=== PATIENT | female | born 1975 | race Caucasian/White ===

== ENCOUNTER → 2016-03-28 | Outpatient (CLI) | payer BC ==
--- NOTE | 2016-04-07 10:00 | MM ---
Reason for exam: screening (asymptomatic). Last mammogram was performed 2 years and 2 months ago. History: Patient had first child at age 29. Physical Findings: A clinical breast exam by your physician is recommended on an annual basis and results should be correlated with mammographic findings. MG Screening Mammo w CAD Bilateral CC and MLO view(s) were taken. Prior study comparison: February 05, 2014, mammogram, performed at [place]. The breast tissue is heterogeneously dense. This may lower the sensitivity of mammography. There is no discrete abnormality. ASSESSMENT: Negative, BI-RAD 1 RECOMMENDATION: Routine screening mammogram of both breasts in 1 year.
== END | disposition home or self-care (01) ==
LOC: RADMAMWWP 15:14
PROVIDERS: ATTEND Family Medicine
DX: Z12.31 Encounter for screening mammogram for malignant neoplasm of breast (principal)

== ENCOUNTER 2017-02-06 08:56 | Day surgery (SDC) | payer BC ==
[2017-02-02 09:52] VITALS: BMI 33.7
[~2017-02-06 08:56] MED LIST: ACETAMINOPHEN IV (For NPO) 1,000 MG in EMPTY BAG 1 BAG IVPB ONE; DEXAMETHASONE SOD PHOSPHATE 10 MG/ML 1 ML VIAL IV ONE; HYDROmorphone 0.5 MG/0.5 ML SYRINGE IVP PRN; LACTATED RINGERS 1,000 ML IV SCH; MIDAZOLAM 2 MG/2 ML VIAL IV PRN; ONDANSETRON 4 MG/2 ML VIAL IVP ONE; Pre Op ABX Message 1 EACH MISC MISCELLANE ONE
[2017-02-06] MEDS ORDERED: LIDOCAINE 1% INJ 10MG/ML (20 ML MDV) ONE (10:49)
[2017-02-06] MEDS ORDERED: fentaNYL (PF) 50 MCG/ML 2 ML AMP ONE (10:49)
[2017-02-06] MEDS ORDERED: ONDANSETRON 4 MG/2 ML VIAL IVP PRN (10:49)
[2017-02-06] MEDS ORDERED: MIDAZOLAM 2 MG/2 ML VIAL ONE (10:49)
[2017-02-06] MEDS ORDERED: PROPOFOL 10 MG/ML 20 ML VIAL IV ONE (10:49)
[2017-02-06] MEDS ORDERED: KETOROLAC 30 MG/ML 1 ML VIAL ONE (10:49)
[2017-02-06] MEDS ORDERED: IBUPROFEN 600 MG TAB PO PRN (10:49)
[2017-02-06] MEDS ORDERED: ACETAMINOPHEN IV (For NPO) 1,000 MG/100 ML VIAL ONE (10:49)
[2017-02-06] MEDS ORDERED: SUCCINYLCHOLINE CHLORIDE 100 MG/5 ML SYR IV ONE (10:49)
[2017-02-06] MEDS ORDERED: IBUPROFEN 800 MG TAB PO PRN (10:50)
[2017-02-06] MEDS ORDERED: LIDOCAINE 1% INJ 10MG/ML (20 ML MDV) SQ ONE ×2 (11:18→11:22)
--- NOTE | 2017-02-06 11:47 | P.OP ---
Date of Procedure: 02/06/17 Preoperative Diagnosis: right ovarian cyst, hemorrhagic, menorrhagia Postoperative Diagnosis: same Procedure(s) Performed: Diagnostic laparoscopy, dilation and curettage, hysteroscopy, endometrial ablation with NovaSure Anesthesia: HILLARY Surgeon: Alejandra Soares Estimated Blood Loss (ml): 10 IV fluids (ml): 500 Urine output (ml): 100 Pathology: other (endometrial currettings) Condition: stable Disposition: PACU Indications for Procedure: Right ovarian hemorrhagic cyst, menorrhagia Operative Findings: Normal appearing ovaries bilaterally normal upper abdomen anatomy. Normal endometrial cavity with proliferative endometrium Description of Procedure: After informed consent was obtained in the preoperative area and risks were discussed including but not limited to infection bleeding damage to bowel bladder, ureter and perforation patient signed consent and was taken to the operating suite. General anesthesia was obtained by anesthesia department. Red rubber catheter was used to drain the bladder of clear yellow urine using sterile technique, weighted speculumthe posterior vaginal vault anterior lip of the cervix was grasped with single tooth tenaculum. An acorn uterine manipulator was advanced into the cervix as a means to manipulate the uterus throughout the procedure. She was then turned to the patient's umbilicus where a small incision was made through this incision a residual was placed. Once that is new Mesha may be appropriate position of the drop in CO2 pressure with insufflation of CO2 gas CO2 insufflation was allowed to occur. Approximately 3 L of gas were used to obtain pneumoperitoneum. At this time the additional port sites were placed in the right lower quadrant 2 fingerbreadths from the ASIS. Under direct visualization a 5 mm trocar and sleeve was placed through this same incision. upon Inspection of the patient's pelvis the above-noted findings were visualized. Multiple pictures were taken the ovaries were visualized directly and no abnormalities were appreciated. All instrument removed from the patient's pelvis and the skin incisions were closed with 4-0 Vicryl in a subcuticular fashion. sterile Dressings were applied as needed. Attention was then turned to the vaginal vault. The acorn uterine manipulator was removed without difficulty and the cervix was then dilated up to 18-[place]. An endometrial curettage was performed until a gritty texture was noted in all 4 quadrants of the uterine cavity. At this time the NovaSure device was then opened and set to the appropriate measurements of the uterine cavity 5 cm length 4.3 cm length power of 118 for a total cycle length of 74 seconds. Cycle is only allowed to be completed once the the cavity was deemed to be intact with by the initial cavity assessment by the NovaSure device. Once the cycle was completed the device was removed without difficulty. The dissection was taken off of the anterior lip of the cervix hemostase appreciated. All instruments removed the patient's vaginal vault. All counts were correct 2 patient tolerated procedure well and was taken to the recovery room awake and in stable condition.
[2017-02-06 11:58] VITALS: TEMP 96.9
[2017-02-06 12:20] VITALS: RESP 16
[2017-02-06 12:56] VITALS: PULSE 68
[2017-02-06 13:07] VITALS: BP 121/79
[2017-02-07] MEDS ORDERED: LEVOTHYROXINE 112 MCG TAB PO SCH (06:30)
== END 2017-02-06 13:25 | disposition home or self-care (01) ==
LOC: OR 08:56
PROVIDERS: ATTEND Obstetrics & Gynecology Obstetrics
DX: N92.0 Excessive and frequent menstruation with regular cycle (principal); N83.201 Unspecified ovarian cyst, right side; E07.9 Disorder of thyroid, unspecified; Z79.890 Hormone replacement therapy; Z79.1 Long term (current) use of non-steroidal anti-inflammatories (NSAID); Z87.891 Personal history of nicotine dependence; Z83.3 Family history of diabetes mellitus; Z80.1 Family history of malignant neoplasm of trachea, bronchus and lung
CPT/HCPCS: 58563; 49320; 81025; 88305; J2250; J1100; J2405; J2001; J3010; J1885; J0131; J0330; J2704

== ENCOUNTER → 2017-04-19 | Outpatient (CLI) | payer BC ==
--- NOTE | 2017-04-23 07:59 | MM ---
Reason for exam: screening (asymptomatic). Last mammogram was performed 1 year and 1 month ago. History: Patient had first child at age 29. Physical Findings: A clinical breast exam by your physician is recommended on an annual basis and results should be correlated with mammographic findings. MG 3D Screening Mammo W/Cad Bilateral CC and MLO view(s) were taken. Prior study comparison: March 28, 2016, bilateral MG screening mammo w CAD. February 05, 2014, mammogram, performed at [place]. The breast tissue is heterogeneously dense. This may lower the sensitivity of mammography. No significant changes when compared with prior studies. ASSESSMENT: Benign, BI-RAD 2 RECOMMENDATION: Routine screening mammogram of both breasts in 1 year.
== END | disposition home or self-care (01) ==
LOC: RADMAMWWP 16:02
PROVIDERS: ATTEND Family Medicine
DX: Z12.31 Encounter for screening mammogram for malignant neoplasm of breast (principal)
CPT/HCPCS: 77063; 77067

== ENCOUNTER → 2017-04-30 | Outpatient (CLI) | payer BC ==
--- NOTE | 2017-04-30 11:56 | NM ---
EXAMINATION TYPE: NM stress cardiolite complete DATE OF EXAM: 04/30/2017 COMPARISON: NONE HISTORY: Chest pain, palpitations, and skin paresthesias. TECHNIQUE: After the intravenous administration of 10.5 mCi Tc 99m Sestamibi - Rest images obtained 45 minutes post injection. The patient exercised using a ZEFERINO protocol and 1 minute prior to peak exercise was injected with 26.7 mCi Tc 99m Sestamibi - Stress images obtained 45 minutes post injecti on. FINDINGS: Targeted heart rate was achieved during performance of the study. Review of stress and rest SPECT betty ges demonstrates no reversible perfusion abnormality. No fixed abnormality is seen. Artifact is note d on the rest images in the septal wall. Gated analysis shows normal wall motion with an estimated le ft ventricular ejection fraction of 61 %. TID is within normal limits calculated at 1.07. IMPRESSION: 1. No scintigraphic evidence for reversible ischemia. 2. Estimated left ventricular ejection fraction of 61%.
--- NOTE | 2017-04-30 12:06 | P.STRESS ---
- Stress Test Note Stress Test Results/Findings: Exam Performed: NM stress cardiolite complete Exam Date: 04/30/17 Reason for Exam: Chest Pain Height: 5 ft 10 in Weight: 105.233 kg Protocol: Adán Cardiolite Stage: 3 Duration of Exercise: 9:00 Resting Heart Rate: 68 Resting Blood Pressure: 118/88 Maximum Achieved Heart Rate: 157 Maximum Achieved Blood Pressure: 210/87 85% PMHR: 150 100% PMHR: 177 METS: 10.5 Technologist Comment: Stress Test Results/Findings: This is a 41-year-old female with history of chest pain, shortness of breath and palpitations being evaluated for cardiac status. Baseline EKG showed sinus rhythm with normal ND interval, QRS duration. Blood pressure at rest is 118/88 , pulse rate of 68. Patient walked on the Adán protocol for 9 minutes achieving a maximal heart rate of 157 with a blood pressure 210/87. EKGs taken during and after exercise did not reveal any significant changes from baseline. Final impression: #1. Negative stress test #2 patient did not express any chest pain #3. No arrhythmias were detected #4. Report on the nuclear images to be given by the radiologist
--- NOTE | 2017-05-01 11:36 | EST ---
- Stress Test Note Stress Test Results/Findings: Exam Performed: NM stress cardiolite complete Exam Date: 04/30/17 Reason for Exam: Chest Pain Height: 5 ft 10 in Weight: 105.233 kg Protocol: Adán Cardiolite Stage: 3 Duration of Exercise: 9:00 Resting Heart Rate: 68 Resting Blood Pressure: 118/88 Maximum Achieved Heart Rate: 157 Maximum Achieved Blood Pressure: 210/87 85% PMHR: 150 100% PMHR: 177 METS: 10.5 Technologist Comment: Stress Test Results/Findings: This is a 41-year-old female with history of chest pain, shortness of breath and palpitations being evaluated for cardiac status. Baseline EKG showed sinus rhythm with normal WI interval, QRS duration. Blood pressure at rest is 118/88 , pulse rate of 68. Patient walked on the Adán protocol for 9 minutes achieving a maximal heart rate of 157 with a blood pressure 210/87. EKGs taken during and after exercise did not reveal any significant changes from baseline. Final impression: #1. Negative stress test #2 patient did not express any chest pain #3. No arrhythmias were detected #4. Report on the nuclear images to be given by the radiologist MICHAEL
== END | disposition home or self-care (01) ==
LOC: RADNMMAIN 08:27
PROVIDERS: ATTEND Family Medicine
DX: R20.2 Paresthesia of skin (principal)
CPT/HCPCS: 93017; 78452; A9500

== ENCOUNTER → 2017-07-18 | Outpatient (CLI) | payer BC | END | disposition home or self-care (01) | LOC: RADECHMAIN 11:42 | PROVIDERS: ATTEND Family Medicine | DX: R00.2 Palpitations (principal) | CPT/HCPCS: 93225; 93226 ==

== ENCOUNTER 2018-02-07 08:34 | Day surgery (SDC) | payer BC ==
[2018-02-05 10:18] VITALS: BMI 34.3
[2018-02-07 08:57] VITALS: TEMP 98.2
[2018-02-07] MEDS: LACTATED RINGERS 1,000 ML IV SCH ×2 (08:58→09:00)
[2018-02-07] MEDS ORDERED: LIDOCAINE 1% INJ 10MG/ML (20 ML MDV) ONE (09:03)
[2018-02-07] MEDS ORDERED: PROPOFOL 10 MG/ML 20 ML VIAL IV ONE (09:03)
[2018-02-07 09:40] VITALS: RESP 18
--- NOTE | 2018-02-07 09:52 | P.PCN ---
Date of Procedure: 02/07/18 Description of Procedure: BRIEF HISTORY: Patient is a 42-year-old pleasant female patient with a medical history significant for hypothyroidism with scheduled for an elective colonoscopy as a part of high risk screening given a family history of colon cancer and polyps. The patient denies any symptoms of metaplasia, melena, change in bowel habits, diarrhea or constipation. She does report a significant history of colon cancer and high risk polyps. PROCEDURE PERFORMED: Colonoscopy with polypectomy. PREOPERATIVE DIAGNOSIS: High risk colon cancer screening, family history of colon cancer, family history of colon polyps. ESTIMATED BLOOD LOSS: Minimal. IV sedation per Anesthesia. PROCEDURE: After informed consent was obtained, the patient, was brought into the endoscopy unit. IV sedation was administered by Anesthesia under continuous monitoring. Digital rectal examination was normal. Initially the Olympus CF- 190 flexible video colonoscope was then inserted in the rectum, gradually advanced into the cecum without any difficulty. Careful examination was performed as the scope was gradually being withdrawn. Terminal ileum was intubated and appeared normal. Ileocecal valve and the appendiceal orifice were visualized and appeared normal. Prep was excellent. Mucosa of the cecum, ascending colon, transverse colon, descending colon, sigmoid colon, and rectum appeared normal. A 4 mm polyp was removed with cold forcep polypectomy in the sigmoid colon. Retroflexion was performed in the rectum and no lesions were seen, mild internal hemorrhoids were noted. The patient tolerated the procedure well. IMPRESSION: Normal-appearing colon from rectum to cecum. Sigmoid colon polypectomy. Mild internal hemorrhoids. RECOMMENDATIONS: Findings of this examination were discussed with the patient and her mother. Okay to resume diet. Await pathology from polypectomy. Patient will likely need surveillance colonoscopy in 5 years pending pathology from polypectomy or sooner if signs or symptoms which warrant investigation develop.
[2018-02-07 10:22] VITALS: BP 134/72; PULSE 94
== END 2018-02-07 10:23 | disposition home or self-care (01) ==
LOC: ORWHC2ENDO 08:34
PROVIDERS: ATTEND Internal Medicine
DX: Z12.11 Encounter for screening for malignant neoplasm of colon (principal); D12.5 Benign neoplasm of sigmoid colon; K64.8 Other hemorrhoids; Z80.0 Family history of malignant neoplasm of digestive organs; Z83.71 Family history of colonic polyps; Z72.0 Tobacco use; E07.9 Disorder of thyroid, unspecified; Z79.890 Hormone replacement therapy; Z79.1 Long term (current) use of non-steroidal anti-inflammatories (NSAID)
CPT/HCPCS: 81025; 88305; 45380; J2001; J2704

== ENCOUNTER → 2018-03-26 | Outpatient (CLI) | payer BC | LOC: LABWHC1 14:44 | PROVIDERS: ATTEND Internal Medicine Endocrinology, Diabetes & Metabolism | DX: E03.8 Other specified hypothyroidism (principal) | CPT/HCPCS: 36415; 84443 ==

== ENCOUNTER → 2018-07-01 | Outpatient (CLI) | payer BC ==
--- NOTE | 2018-07-02 14:46 | MM ---
Reason for exam: screening (asymptomatic). Last mammogram was performed 1 year and 2 months ago. History: Patient had first child at age 29. Physical Findings: A clinical breast exam by your physician is recommended on an annual basis and results should be correlated with mammographic findings. MG 3D Screening Mammo W/Cad Bilateral CC and MLO view(s) were taken. Prior study comparison: April 19, 2017, bilateral MG 3d screening mammo w/cad. March 28, 2016, bilateral MG screening mammo w CAD. The breast tissue is heterogeneously dense. This may lower the sensitivity of mammography. No suspicious abnormality in the right breast. Lateral distortion at middle depth on the left CC view with possible superior correlate. ASSESSMENT: Incomplete: need additional imaging evaluation, BI-RAD 0 RECOMMENDATION: Special view mammogram of the left breast. If lesion persists on supplemental views, image directed ultrasound is recommended. [facility] will attempt to contact patient to return for supplemental views and ultrasound if indicated.
== END | disposition home or self-care (01) ==
LOC: RADMAMWWP 08:05
PROVIDERS: ATTEND Obstetrics & Gynecology Obstetrics
DX: Z12.31 Encounter for screening mammogram for malignant neoplasm of breast (principal)
CPT/HCPCS: 77063; 77067

== ENCOUNTER → 2018-07-05 | Outpatient (CLI) | payer BC ==
--- NOTE | 2018-07-09 08:08 | MM ---
Reason for exam: additional evaluation requested from abnormal screening. Last mammogram was performed less than 1 month ago. History: Patient had first child at age 29. Physical Findings: Nurse did not find any significant physical abnormalities on exam. MG 3D Work Up W/Cad LT Spot compression CC, spot compression MLO, and LM view(s) were taken of the left breast. Prior study comparison: July 01, 2018, bilateral MG 3d screening mammo w/cad. April 19, 2017, bilateral MG 3d screening mammo w/cad. There are scattered fibroglandular densities. There is no discrete abnormality. These results were verbally communicated with the patient and result sheet given to the patient on 07/05/18. ASSESSMENT: Benign, BI-RAD 2 RECOMMENDATION: Return to routine screening mammogram schedule for both breasts.
== END | disposition home or self-care (01) ==
LOC: RADMAMWWP 14:48
PROVIDERS: ATTEND Obstetrics & Gynecology Obstetrics
DX: Z12.31 Encounter for screening mammogram for malignant neoplasm of breast (principal)
CPT/HCPCS: 77061; 77065

== ENCOUNTER → 2018-07-06 | Outpatient (CLI) | payer BC ==
[2018-07-06 10:41] LABS: HCT 41.4 % (34.0-46.0); HGB 13.7 gm/dL (11.4-16.0); MCH 30.7 pg (25.0-35.0); MCV 93.1 fL (80.0-100.0); Mean Platelet Volume 8.5; Platelet Count 253 k/uL (150-450); RBC 4.44 m/uL (3.80-5.40); RDW 13.8 % (11.5-15.5); WBC 5.1 k/uL (3.8-10.6)
[2018-07-06 10:51] LABS: Appearance,Urine Cloudy (Clear); Bacteria,Urine Few /hpf; Bilirubin,Urine Negative (Negative); Blood,Urine Negative (Negative); Color,Urine Yellow; Glucose,Urine (UA) Negative (Negative); Ketones,Urine 2+ (Negative); Leukocyte Esterase,Urine Moderate (Negative); Mucus,Urine Rare /hpf; Nitrite,Urine Negative (Negative); PH, Urine 5.5 (5.0-8.0); Protein,Urine Negative (Negative); RBC,Urine 1 /hpf (0-5); Specific Gravity,Urine 1.012 (1.001-1.035); Squamous Epithelial Cell,Urine 3 /hpf (0-4); Urobilinogen,Urine <2.0 mg/dL (<2.0); WBC,Urine 6 /hpf (0-5)
[2018-07-06 17:39] LABS: Albumin 4.1 g/dL (3.80-4.90); Albumin/Globulin Ratio 2.05 (1.60-3.17); Calcium 9.2 mg/dL (8.7-10.3); LDL Cholesterol,Calculated 81.8 mg/dL (0.0-131.0); Potassium 4.2 mmol/L (3.5-5.5); Total Bilirubin 0.6 mg/dL (0.3-1.2); Total Protein 6.1 g/dL (6.2-8.2); VLDL Calculation 18.2 mg/dL (5.00-40.00)
[2018-07-06 17:42] LABS: Iron Saturation 33.04 (12.00-45.00); Parathyroid Hormone Intact 54.4 pg/mL (14.0-72.0)
[2018-07-06 17:52] LABS: Vitamin D 25 Hydroxy 38.7 ng/mL (30.0-100.0)
[2018-07-06 20:27] LABS: Hemoglobin A1C 5.3 % (4.0-6.0)
== END | disposition home or self-care (01) ==
LOC: LABWHC1 09:12
PROVIDERS: ATTEND Family Medicine
DX: Z00.00 Encounter for general adult medical examination without abnormal findings (principal); Z98.84 Bariatric surgery status
CPT/HCPCS: 36415; 80053; 80061; 81001; 82306; 82607; 82728; 82746; 83036; 83540; 83550; 83970; 84425; 85027

== ENCOUNTER → 2018-10-22 | Outpatient (CLI) | payer BC | END | disposition home or self-care (01) | LOC: LABWHC1 10:50 | PROVIDERS: ATTEND Internal Medicine Endocrinology, Diabetes & Metabolism | DX: E03.8 Other specified hypothyroidism (principal) | CPT/HCPCS: 36415; 84443 ==

== ENCOUNTER → 2018-10-25 | Outpatient (CLI) | payer BC ==
--- NOTE | 2018-10-26 11:49 | US ---
EXAMINATION TYPE: US thyroid st tissue head/neck DATE OF EXAM: 10/25/2018 COMPARISON: NONE CLINICAL HISTORY: E03.8 Other specified hypothyroidism. Hypothyroidism, patient on medication for 14 years GLAND SIZE: Right Lobe: 3.3 x 0.9 x 1.1 cm Overall Parenchyma: heterogenous Left Lobe: 2.7 x 0.7 x 0.9 cm Overall Parenchyma: heterogeneous Isthmus Thickness: 0.2 cm NODULES RIGHT: # of nodules measured on right: 0 LEFT: # of nodules measured on left: 0 ISTHMUS: # of nodules measured in the isthmus: 0 Bilateral neck scanned, lymph node left neck = 1.2cm IMPRESSION: 1. No suspicious thyroid masses. The heart appears somewhat atrophic. 2. Left neck lymph node.
== END | disposition home or self-care (01) ==
LOC: RADUSMAIN 17:50
PROVIDERS: ATTEND Internal Medicine Endocrinology, Diabetes & Metabolism
DX: R22.1 Localized swelling, mass and lump, neck (principal)
CPT/HCPCS: 76536

== ENCOUNTER → 2019-02-13 | Outpatient (CLI) | payer BC ==
--- NOTE | 2019-02-13 13:41 | US ---
EXAMINATION TYPE: US venous doppler duplex LE LT DATE OF EXAM: 02/13/2019 1:11 PM COMPARISON: NONE CLINICAL HISTORY: M79.669 pain in left lower leg. Tenderness left calf for 1 week SIDE PERFORMED: left TECHNIQUE: The lower extremity deep venous system is examined utilizing real time linear array sonog lilia with graded compression, doppler sonography and color-flow sonography. VESSELS IMAGED: External Iliac Vein (EIV) Common Femoral Vein Deep Femoral Vein Greater Saphenous Vein * Femoral Vein Popliteal Vein Small Saphenous Vein * Proximal Calf Veins (* superficial vessels) Grayscale, color Doppler, spectral Doppler imaging performed of the deep veins of the left lower extr emity. Left Leg: No evidence of DVT There is normal flow, compressibility, vascular waveforms. IMPRESSION: No evident deep venous arthrosis at or above the left knee. Follow-up as indicated.
== END | disposition home or self-care (01) ==
LOC: RADUSWWP 12:50
PROVIDERS: ATTEND Physician Assistant
DX: M79.662 Pain in left lower leg (principal)

== ENCOUNTER 2019-02-25 08:14 | Emergency (ER) | payer OTHER, BC ==
[2019-02-25 08:27] VITALS: BP 115/74; PULSE 63; RESP 18; TEMP 97.5
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
== END 2019-02-25 09:33 | disposition home or self-care (01) ==
LOC: EC 08:14
DX: R51 Headache (principal); E07.9 Disorder of thyroid, unspecified; Z79.890 Hormone replacement therapy; Z87.891 Personal history of nicotine dependence; V89.2XXA Person injured in unspecified motor-vehicle accident, traffic, initial encounter; Y92.410 Unspecified street and highway as the place of occurrence of the external cause
CPT/HCPCS: 70450; 99284

== ENCOUNTER → 2019-03-20 | Outpatient (CLI) | payer BC ==
[2019-03-20 09:43] LABS: Basophils % (A) 0 %; Eosinophils # (A) 0.1 k/uL (0-0.7); Eosinophils % (A) 1 %; HCT 43.2 % (34.0-46.0); HGB 13.6 gm/dL (11.4-16.0); Lymphocytes # (A) 1.2 k/uL (1.0-4.8); Lymphocytes % (A) 26 %; MCH 30.5 pg (25.0-35.0); MCHC 31.4 g/dL (31.0-37.0); Mean Platelet Volume 7.6; Monocytes # (A) 0.2 k/uL (0-1.0); Monocytes % (A) 4 %; Neutrophils # (A) 3.3 k/uL (1.3-7.7); Neutrophils % (A) 68 %; Platelet Count 328 k/uL (150-450); RBC 4.45 m/uL (3.80-5.40); RDW 12.4 % (11.5-15.5); WBC 4.8 k/uL (3.8-10.6)
[2019-03-20 16:57] LABS: % Iron Saturation 26.59 (12.00-45.00); Chol/HDL Ratio 2.51; Cholesterol 186 mg/dL (0-200); Iron 67 ug/dL (50-170); Total Iron Binding Capacity 252 ug/dL (228-460); Triglycerides <50.0 mg/dL (0.0-149.0)
[2019-03-20 17:05] LABS: Ferritin 151.1 ng/mL (10.0-291.0)
[2019-03-20 18:28] LABS: Hemoglobin A1C 5.2 % (4.0-6.0)
== END | disposition home or self-care (01) ==
LOC: LABWHC1 08:28
PROVIDERS: ATTEND Family Medicine
DX: Z01.812 Encounter for preprocedural laboratory examination (principal); Z98.84 Bariatric surgery status
CPT/HCPCS: 36415; 80061; 82306; 82607; 82728; 83036; 83540; 83550; 83970; 85025

== ENCOUNTER → 2019-03-20 | Outpatient (CLI) | payer BC ==
[2019-03-20 09:47] LABS: Appearance,Urine Clear (Clear); Bacteria,Urine Rare /hpf; Bilirubin,Urine Negative (Negative); Blood,Urine Negative (Negative); Color,Urine Light Yellow; Glucose,Urine (UA) Negative (Negative); Ketones,Urine Negative (Negative); Leukocyte Esterase,Urine Trace (Negative); Nitrite,Urine Negative (Negative); PH, Urine 7.5 (5.0-8.0); Protein,Urine Negative (Negative); RBC,Urine <1 /hpf (0-5); Specific Gravity,Urine 1.004 (1.001-1.035); Squamous Epithelial Cell,Urine <1 /hpf (0-4); Urobilinogen,Urine <2.0 mg/dL (<2.0); WBC,Urine 1 /hpf (0-5)
[2019-03-20 09:52] LABS: INR 0.9 (<1.2); Partial Thromboplastin Time 22.8 sec (22.0-30.0); Prothrombin Time 9.9 sec (9.0-12.0)
[2019-03-20 09:58] LABS: ALT 22 U/L (4-34); AST 29 U/L (14-36); African American GFR (CKD) >90 (>60 ml/min/1.73 sqM); Albumin 4.2 g/dL (3.5-5.0); Alkaline Phosphatase 61 U/L (38-126); Anion Gap 7 mmol/L; Blood Urea Nitrogen 15 mg/dL (7-17); Calcium 9.1 mg/dL (8.4-10.2); Carbon Dioxide 30 mmol/L (22-30); Chloride 103 mmol/L (98-107); Glucose 86 mg/dL (74-99); Non-African American GFR(CKD) >90 (>60 ml/min/1.73 sqM); Potassium 4.4 mmol/L (3.5-5.1); Sodium 140 mmol/L (137-145); Total Bilirubin 0.7 mg/dL (0.2-1.3)
== END | disposition home or self-care (01) ==
LOC: LABPAT 08:25
PROVIDERS: ATTEND Orthopaedic Surgery
DX: Z01.818 Encounter for other preprocedural examination (principal); Z01.812 Encounter for preprocedural laboratory examination; M16.12 Unilateral primary osteoarthritis, left hip
CPT/HCPCS: 80053; 81001; 85610; 85730; 87070

== ENCOUNTER 2019-03-31 05:30 | Day surgery (SDC) | payer BC ==
[2019-03-26 10:44] VITALS: BMI 22.6
[~2019-03-31 05:30] MED LIST changes: -ACETAMINOPHEN IV (For NPO) 1,000 MG in EMPTY BAG 1 BAG IVPB ONE; +ACETAMINOPHEN TAB 500 MG TAB PO ONE; +GABAPENTIN 300 MG CAP PO ONE; -LACTATED RINGERS 1,000 ML IV SCH; +MELOXICAM 7.5 MG TAB PO ONE; -Pre Op ABX Message 1 EACH MISC MISCELLANE ONE; +SCOPOLAMINE 1.5MG/72HR PATCH TRANSDERM ONE; +TRANEXAMIC ACID 1,000 MG in SODIUM CHLORIDE 0.9% 100 ML IVPB ONE; +VANCOMYCIN 1,000 MG in SODIUM CHLORIDE 0.9% 250 ML IVPB ONE
[2019-03-31] MEDS ORDERED: ROPIVACAINE 246.25 MG, EPINEPHrine 0.5 MG, KETOROLAC 30 MG, cloNIDine HCL/PF 80 MCG, WA... MISCELLANE ONE ×5 (06:00)
[2019-03-31] MEDS: LACTATED RINGERS 1,000 ML IV SCH ×2 (06:22→22:48)
[2019-03-31] MEDS ORDERED: SODIUM CHLORIDE 0.9% 100 ML BAG ONE (06:59)
[2019-03-31] MEDS ORDERED: MIDAZOLAM 2 MG/2 ML VIAL ONE (06:59)
[2019-03-31] MEDS ORDERED: SODIUM CHLORIDE 0.9% IRRIG 1,000 ML BTL IRRIGATION ONE (06:59)
[2019-03-31] MEDS ORDERED: PROPOFOL 10 MG/ML 20 ML VIAL IV ONE (06:59)
[2019-03-31] MEDS ORDERED: ceFAZolin 3,000 MG in SODIUM CHLORIDE 0.9% IRRIGATIO 3,000 ML IRRIGATION ONE (06:59)
[2019-03-31] MEDS ORDERED: fentaNYL (PF) 50 MCG/ML 2 ML AMP ONE (06:59)
[2019-03-31] MEDS ORDERED: HEPARIN SODIUM,PORCINE 10,000 UNIT/ML 1 ML VIAL ONE (06:59)
[2019-03-31] MEDS ORDERED: TRANEXAMIC ACID 1,000 MG/10 ML VIAL ONE (06:59)
--- NOTE | 2019-03-31 08:34 | P.OP ---
Date of Procedure: 03/31/19 Preoperative Diagnosis: Severe osteoarthritis left hip Postoperative Diagnosis: Severe osteoarthritis left hip Procedure(s) Performed: Left total hip arthroplasty with a direct anterior approach Implants: Crocker and nephew Polarstem size 4 standard Crocker [employer] Nephew R3, 3 hole acetabular shell, 48 mm Crocker [employer] Nephew reflection 6.5 mm cancellus screw, 20 mm 2 Crocker [employer] Nephew R3, XLPE 20 acetabular liner Crocker [employer] Nephew Oxinium femoral head 32 m, +4 All components were press-fit. The articulation is Oxinium on polyethylene. Anesthesia: spinal Surgeon: Shaji Alvarez Master Planner #1: Mar Olivares Estimated Blood Loss (ml): 200 (67 mL returned with Cell Saver) Pathology: other (Femoral head) Condition: stable Disposition: PACU Indications for Procedure: After failure of conservative treatment we discussed the surgical and nonsurgical treatment options at length. Patient wishes to proceed with a total hip arthroplasty with a direct anterior approach. Complications specific to this procedure were discussed at length, including but not limited to infection, leg length discrepancy, dislocation, and nerve injury. Patient is aware of all these complications and informed consent was obtained Operative Findings: The operative findings are consistent with severe osteoarthritis of the left hip Description of Procedure: Patient was seen and evaluated in the preoperative area, consent was reviewed, and the surgical site was marked with a skin marker. Patient was then brought to the operating room and given prophylactic antibiotics intravenously. 1 g of Tranexamic acid was also given. A spinal anesthetic was administered by the anesthesia department. The patient was then placed on the [place] table with the bony prominences well-padded. The hip area was then prepped and draped in usual sterile fashion. A universal timeout was then performed, which confirmed the patient's name, surgical site, ALLERGIES, and procedure being performed. Next the incision site was located at 1 cm distal and 1 cm lateral to the anterior superior iliac spine. The skin and subcutaneous tissues were sharply incised. Incision was carefully dissected down to the fascia overlying the tensor fascia nikita muscle. This fascia was then incised in line with the incision. Next, using blunt finger dissection, the tensor fascia nikita muscle was dissected off its investing fascia. The muscle was then carefully retracted laterally with a cobra retractor over the lateral neck of the femur. Next, the circumflex vessels were identified and cauterized using the AquaMantis device. The anterior hip capsule was then exposed. The capsule was then opened and an inverted T fashion. Cobra retractors were then placed intracapsularly. The proximal femur was then visualized. The femoral neck was then osteotomized appropriate level above the lesser trochanter. Small amount of traction was placed with the [place] table. A small wedge of bone was then removed from the remaining femoral head. Next, using a corkscrew femoral head was easily removed from the acetabulum. On gross visual inspection, the femoral head had complete loss of articular cartilage in multiple periarticular osteophytes. Attention was then turned to the acetabulum. the acetabulum was exposed and any remaining labrum was excised. Sequential reaming of the acetabulum was performed using fluoroscopic guidance. When the appropriate size was reached, a trial was then placed. The position and fit of the trial was checked with fluoroscopy. The trial was then removed. Then, using fluoroscopic guidance, the final implant was impacted at 20 of anteversion and 40 of abduction, and fully seated in the acetabulum. 2 screws were then placed in the acetabulum. Again fluoroscopy was used to check position of the screws. Next, the liner was then impacted, with a 20 elevated liner located in the anterior superior quadrant. Component locking was confirmed. Attention was then directed to the femur. With the aid of the [place] table, the femur was externally rotated to approximately 130, extended, and abducted under the opposite leg. A side hook was then placed under the proximal femur, and the side hook elevator was used to elevate the proximal femur. Retractors were then placed. A capsular release was performed, as well as a release of the conjoined tendon, which afforded excellent visualization of the proximal femur. Next, a box osteotome was used to lateralize the proximal femur. A hand crown pouncer was then used to locate the femoral canal. Sequential broaching was then performed with appropriate size which afforded excellent fixation in the proximal femur. A trial was then placed with appropriate head and neck, and the hip was gently reduced with the aid of the [place] table. Fluoroscopy was then used to check position of the components, as well as to ensure equal leg lengths. The hip was then gently dislocated and the trials were then removed. Final implants were then impacted and the hip was again reduced. Final fluoroscopic x-rays confirmed that the components were in anatomic position, as well as equal leg lengths. The hip was also taken through range of motion, and found to be stable. The hip was then copiously irrigated with antibiotic solution with pulsatile lavage. The hip was then irrigated with Irrisept solution. The soft tissues were then injected with a ropivacaine solution, which consisted of 246.25 mg of ropivacaine, 0.5 mg of epinephrine, 30 mg of Toradol, 80 g of clonidine, and 48.45 mL of sterile water, for a total of 100 mL of fluid injected. A second dose of 1 g of Tranexamic acid was also given. the fascia was then closed with 2-0 strata fix suture. The subcutaneous tissue was closed with 3-0 Vicryl. The subcuticular tissue was closed with 3-0 strata fix suture. The skin was then closed with Dermabond glue and a sterile silver dressing. The patient was then transferred to the recovery room in stable condition. The bilingual medical assistant ADIS Ross was required due to the complexity of surgery, and the need for skilled surgical services coordinator for positioning, draping, exposure, retraction, and closure of the wound.
--- NOTE | 2019-03-31 08:40 | XR ---
EXAMINATION TYPE: XR Hip Limited LT, FL guided pain mgmt statistic DATE OF EXAM: 03/31/2019 COMPARISON: NONE HISTORY: Fluoroscopic documentation during left hip arthroplasty. TECHNIQUE: Fluoroscopy. FINDINGS: Fluoroscopic guidance was provided during procedure performed by Dr. Alvarez. A total of seconds of fluoroscopic time was utilized during the procedure and 2 spot images was acquired during left hip arthroplasty. IMPRESSION: As Above.
[2019-03-31] MEDS ORDERED: MAGNESIUM HYDROXIDE 2,400 MG/10 ML CUP PO PRN (08:48)
[2019-03-31] MEDS ORDERED: NALOXONE 0.4 MG/ML 1 ML VIAL IV PRN (08:48)
[2019-03-31] MEDS ORDERED: HYDROmorphone 0.5 MG/0.5 ML SYRINGE IVP PRN ×2 (08:48)
[2019-03-31] MEDS ORDERED: ACETAMINOPHEN TAB 325 MG TAB PO PRN (08:48)
[2019-03-31] MEDS ORDERED: TEMAZEPAM 15 MG CAP PO PRN (08:48)
[2019-03-31] MEDS ORDERED: HYDROcodone/APAP 5-325MG 1 EACH TAB PO PRN (08:48)
[2019-03-31] MEDS ORDERED: HYDROmorphone 1 MG/ML 1 ML SYRINGE IVP PRN (08:48)
[2019-03-31] MEDS ORDERED: LACTATED RINGERS 1,000 ML IV SCH (09:00)
[2019-03-31] MEDS ORDERED: diphenhydrAMINE 50 MG/ML 1 ML VIAL IVP ONE (09:09)
--- NOTE | 2019-03-31 09:23 | XR ---
EXAMINATION TYPE: XR Hip Limited LT DATE OF EXAM: 03/31/2019 CLINICAL HISTORY: Left hip pain and osteoarthritis. TECHNIQUE: Single AP portable view of left hip is obtained immediately postoperatively. COMPARISON: None. FINDINGS: Metallic hardware from left hip arthroplasty is seen and appears satisfactory in alignment and position. There is evidence of recent surgery with subcutaneous gas noted laterally. IMPRESSION: Metallic hardware from left hip arthroplasty is satisfactory in position.
[2019-03-31] MEDS ORDERED: SENNOSIDES-DOCUSATE SODIUM 1 EACH TAB PO SCH (21:00)
[2019-03-31] MEDS: HYDROcodone/APAP 5-325MG 1 EACH TAB PO PRN (22:34)
[2019-03-31] MEDS: ASPIRIN 325 MG TAB PO SCH (22:34)
--- NOTE | 2019-04-01 00:25 | P.CONS ---
History of Present Illness - Reason for Consult Consult date: 03/31/19 Medical management Requesting physician: Shaji Alvarez - Chief Complaint Left hip surgery - History of Present Illness Consultation: This is a very pleasant 43-year-old patient of Dr. Chaves. Was undergone a left total hip osteoplasty. Pain is controlled. Using a walker to get to the bathroom. Her nausea vomiting. Did tolerate some diet. Chronic stable medical conditions include osteoarthritis, hypothyroid. Patient's pain had been progressively getting worse and left hip. Had failed conservative management is. It was worse with activity and better with rest. Sometimes sharp and dull pain. Review of systems: GEN.: None EYES: None HEENT: None NECK: None RESPIRATORY: None CARDIOVASCULAR: None GASTROINTESTINAL: None GENITOURINARY: None MUSCULOSKELETAL: As above, also. The right hip LYMPHATICS: None HEMATOLOGICAL: None PSYCHIATRY: None NEUROLOGICAL: None Past medical history to include: Osteoarthritis, hypothyroid Social history: Patient smoked on and off in the past. 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 Alcohol occasionally. . Physical examination: VITAL SIGNS: 98.2, 67, 17, 106/70, 99% on room air GENERAL: BMI 22.4, laying in bed, comfortable. EYES: Pupils equal. Conjunctiva normal. HEENT: External appearance of nose and ears normal, oral cavity grossly normal. NECK: JVD not raised; masses not palpable. HEART: First and second heart sounds are normal; no edema. LUNGS: Respiratory rate normal; clear to auscultation. ABDOMEN: Soft, nontender, liver spleen not palpable, no masses palpable. PSYCH: Alert and oriented x3; mood and affect normal. MUSCULAR skeletal: Dressing over the left hip NEUROLOGICAL: Cranial nerves grossly intact; no facial asymmetry, power and sensation grossly intact. LYMPHATICS: No lymph nodes palpable in the axilla and neck INVESTIGATIONS, reviewed in the clinical context: Lab from March 20: White count 4.8 hemoglobin 13.6 platelets 328 potassium 4.4 creatinine 0.77 Assessment: -Left total hip arthroplasty -Primary osteoarthritis of both the hips -Hypothyroid Plan: Pain control is in place. Aspirin for DVT prophylaxis per Dr. Alvarez. Home medications resumed. Care was discussed with the patient. Questions were answered. Thank you Dr. Alvarez Past Medical History Past Medical History: Osteoarthritis (OA), Thyroid Disorder Additional Past Medical History / Comment(s): FAMILY HX COLON CA History of Any Multi-Drug Resistant Organisms: None Reported Past Surgical History: Adenoidectomy, Bariatric Surgery, Tonsillectomy, Uterine Ablation Additional Past Surgical History / Comment(s): Lipoma removed from knee, gastric sleeve 2019 Past Anesthesia/Blood Transfusion Reactions: No Reported Reaction, Family History of Problems w/ Anesthesia Additional Past Anesthesia/Blood Transfusion Reaction / Comm: mother has hard time coming out of anesthesia takes long time Past Psychological History: Anxiety Smoking Status: Former smoker Past Alcohol Use History: Occasional Additional Past Alcohol Use History / Comment(s): smoked from teens to 2004; started up again 2010 and then quit 2013; smoked under 1/2 ppd Past Drug Use History: None Reported - Past Family History Mother Family Medical History: Cancer Additional Family Medical History / Comment(s): lung cancer Medications and Allergies Home Medications Medication Instructions Recorded Confirmed Type Levothyroxine Sodium [Tirosint] 112 mcg PO DAILY 02/02/17 03/31/19 History Multivitamins, Thera [Multivitamin 1 tab PO DAILY 03/26/19 03/26/19 History (formulary)] Mupirocin [Mupirocin 2%] 1 applic TOPICAL BID 03/26/19 03/31/19 History Aspirin 325 mg PO BID #60 tab 03/31/19 Rx Sennosides-Docusate Sodium 1 tab PO BID #60 tablet 03/31/19 Rx [Senokot-S] Allergies Allergy/AdvReac Type Severity Reaction Status Date / Time No Known Allergies Allergy Verified 03/31/19 05:51 Physical Exam Vitals: Vital Signs Temp Pulse Resp BP Pulse Ox 03/31/19 20:00 97.9 F 77 16 96/61 03/31/19 14:37 98.2 F 67 17 106/70 99 03/31/19 14:02 72 16 97/60 99 03/31/19 13:42 61 16 93/59 99 03/31/19 13:05 69 16 92/50 99 03/31/19 12:34 69 16 111/68 100 03/31/19 11:30 66 16 111/76 100 03/31/19 11:01 73 16 107/73 100 03/31/19 10:32 61 16 101/67 97 03/31/19 10:01 61 16 103/69 100 03/31/19 09:46 63 16 101/67 100 03/31/19 09:31 59 L 16 112/74 100 03/31/19 09:16 80 16 113/68 100 03/31/19 09:02 73 14 115/64 100 03/31/19 08:45 63 16 109/56 98 03/31/19 08:41 98.0 F 68 16 104/58 99 03/31/19 06:00 97.9 F 62 16 121/71 99 Intake and Output 03/31/19 03/31/19 04/01/19 14:59 22:59 06:59 Intake Total 100 Output Total 200 Balance -100 Intake: IV 100 Output: Estimated Blood Loss 200 Other: Weight 68.9 kg
[2019-04-01 02:04] VITALS: RESP 18
[2019-04-01 08:06] LABS: Basophils % (A) 0 %; Eosinophils # (A) 0.1 k/uL (0-0.7); Eosinophils % (A) 1 %; HCT 35.6 % (34.0-46.0); HGB 11.3 gm/dL (11.4-16.0); Lymphocytes % (A) 21 %; MCH 30.9 pg (25.0-35.0); MCHC 31.7 g/dL (31.0-37.0); MCV 97.4 fL (80.0-100.0); Mean Platelet Volume 7.7; Monocytes # (A) 0.4 k/uL (0-1.0); Monocytes % (A) 4 %; Neutrophils % (A) 73 %; Platelet Count 284 k/uL (150-450); RBC 3.66 m/uL (3.80-5.40); RDW 12.6 % (11.5-15.5); WBC 9.7 k/uL (3.8-10.6)
[2019-04-01 08:39] VITALS: BP 108/71; PULSE 72; TEMP 97.8
[2019-04-01] MEDS ORDERED: MELOXICAM 7.5 MG TAB PO SCH (09:00)
[2019-04-01] MEDS: ASPIRIN 325 MG TAB PO SCH (09:52)
[2019-04-01] MEDS: HYDROcodone/APAP 5-325MG 1 EACH TAB PO PRN (09:54)
--- NOTE | 2019-04-01 23:01 | P.PN ---
Progress Note - Text Progress Note Date: 04/01/19 - Chief Complaint Left hip surgery - History of Present Illness Consultation: This is a very pleasant 43-year-old patient of Dr. Chaves. Was undergone a left total hip arthroplasty Today-sitting up. Feeling better. Did ambulate. Patient much improved.. Tolerated diet. at the bedside. Review of systems: Was done for constitutional, cardiovascular, GI, pulmonary. relevant finding as above Current medications reviewed in today's electronic records Physical examination: VITAL SIGNS: 97.8, 72, 18, 108/71, 100% on room air GENERAL: BMI 22.4, sitting on bed, comfortable. EYES: Pupils equal. Conjunctiva normal. HEENT: External appearance of nose and ears normal, oral cavity grossly normal. NECK: JVD not raised; masses not palpable. HEART: First and second heart sounds are normal; no edema. LUNGS: Respiratory rate normal; clear to auscultation. ABDOMEN: Soft, nontender, liver spleen not palpable, no masses palpable. PSYCH: Alert and oriented x3; mood and affect normal. MUSCULAR skeletal: Dressing over the left hip INVESTIGATIONS, reviewed in the clinical context: White count 9.7 hemoglobin 11.3 Lab from March 20: White count 4.8 hemoglobin 13.6 platelets 328 potassium 4.4 creatinine 0.77 Assessment: -Left total hip arthroplasty -Primary osteoarthritis of both the hips -Hypothyroid -Acute postprocedure anemia, as expected from surgery Plan: Care was discussed with the patient patient. Questions were answered Thank you Dr. Alvarez
== END 2019-04-01 14:29 | disposition home health service (06) ==
LOC: OR 05:30 → EDSTATUS 07:00 → 4SSUR 08:38 → OR 04-01 14:29
PROVIDERS: ATTEND Orthopaedic Surgery
DX: M16.12 Unilateral primary osteoarthritis, left hip (principal); M25.752 Osteophyte, left hip; E03.9 Hypothyroidism, unspecified; E66.9 Obesity, unspecified; Z68.22 Body mass index [BMI] 22.0-22.9, adult; Z98.84 Bariatric surgery status; Z83.3 Family history of diabetes mellitus; E06.3 Autoimmune thyroiditis; Z87.891 Personal history of nicotine dependence; Z90.710 Acquired absence of both cervix and uterus; Z98.890 Other specified postprocedural states; Z79.890 Hormone replacement therapy; Z79.899 Other long term (current) drug therapy; Z80.0 Family history of malignant neoplasm of digestive organs; Z83.71 Family history of colonic polyps; Z81.1 Family history of alcohol abuse and dependence; Z79.82 Long term (current) use of aspirin; F41.9 Anxiety disorder, unspecified
CPT/HCPCS: 97116; 97110; 97161; 86891; 85025; 88300; 73501; 27130; P9022; C1776; J2250; J0171; J3370; J1200; J1644; J1100; J0690 ×3; J2405; J3010; J1885; J2795; J2704; J0735; J1170; 86850; 86900; 86901

== ENCOUNTER → 2019-12-30 | Outpatient (CLI) | payer BC ==
--- NOTE | 2019-12-31 10:31 | MM ---
Reason for exam: screening (asymptomatic). Last mammogram was performed 1 year and 6 months ago. History: Patient had first child at age 29. Physical Findings: A clinical breast exam by your physician is recommended on an annual basis and results should be correlated with mammographic findings. MG 3D Screening Mammo W/Cad Bilateral CC and MLO view(s) were taken. Prior study comparison: July 05, 2018, left breast MG 3d work up w/cad LT. July 01, 2018, bilateral MG 3d screening mammo w/cad. The breast tissue is heterogeneously dense. This may lower the sensitivity of mammography. There is no discrete abnormality. No significant changes when compared with prior studies. ASSESSMENT: Negative, BI-RAD 1 RECOMMENDATION: Routine screening mammogram of both breasts in 1 year.
== END | disposition home or self-care (01) ==
LOC: RADMAMWWP 07:51
PROVIDERS: ATTEND Obstetrics & Gynecology Obstetrics
DX: Z12.31 Encounter for screening mammogram for malignant neoplasm of breast (principal)
CPT/HCPCS: 77063; 77067

== ENCOUNTER → 2020-06-01 | Outpatient (CLI) | payer BC | END | disposition home or self-care (01) | LOC: LABWHC1 07:53 | PROVIDERS: ATTEND Internal Medicine Endocrinology, Diabetes & Metabolism | DX: E03.8 Other specified hypothyroidism (principal) | CPT/HCPCS: 36415; 84443 ==

== ENCOUNTER → 2023-08-10 | Outpatient (CLI) | payer BC ==
--- NOTE | 2023-08-13 13:50 | MM ---
Reason for Exam: Screening (asymptomatic). Last mammogram was performed 1 year(s) and 1 month(s) ago. Patient History: Menarche at age 13. First Full-Term at age 29. Late child-bearing (after 30). Perimenopausal. Mother had breast cancer, left, age 67. Risk Values: Marilia 5 year model risk: 1.7%. NCI Lifetime model risk: 16.1%. Prior Study Comparison: 07/05/2018 Left Diagnostic Mammogram, [facility]. 12/30/2019 Bilateral Screening Mammogram, [facility]. 06/26/2022 Bilateral MG 3D screening mammo w/cad, [facility]. Tissue Density: The breasts are heterogeneously dense, which may obscure small masses. Findings: Analyzed By CAD. Right breast: There is no suspicious group of microcalcifications or new suspicious mass. Left breast: There is no suspicious group of microcalcifications or new suspicious mass. Right breast: There is no suspicious group of microcalcifications or new suspicious mass. Left breast: Asymmetry left breast inferior aspect anterior to 3.7 cm from nipple. Overall Assessment: Incomplete: need additional imaging evaluation, BI-RAD 0 Management: Diagnostic Mammogram of the left breast. Spot compression left breast anterior depth MLO view with 3-D possibly ultrasound. [facility] will attempt to contact patient to return for supplemental views and ultrasound if indicated. Patient should continue monthly self-breast exams. A clinical breast exam by your physician is recommended on an annual basis. This exam should not preclude additional follow-up of suspicious palpable abnormalities. Note on Marilia scores and lifetime risk: 1. A Marilia score greater than 3% is considered moderate risk. If this is the case, consider specialist referral to assess eligibility for a risk reducing agent. 2. If overall lifetime risk for the development of breast cancer is 20% or higher, the patient may qualify for future screening with alternating mammogram and breast MRI. Electronically signed and approved by: Dani Mota DO
== END | disposition home or self-care (01) ==
LOC: RADMAMWWP 14:41
PROVIDERS: ATTEND Obstetrics & Gynecology Obstetrics
DX: Z12.31 Encounter for screening mammogram for malignant neoplasm of breast (principal); R92.333 Mammographic heterogeneous density, bilateral breasts; Z80.3 Family history of malignant neoplasm of breast
CPT/HCPCS: 77063; 77067

== ENCOUNTER → 2023-08-16 | Outpatient (CLI) | payer BC ==
--- NOTE | 2023-08-16 08:58 | MM ---
Reason for Exam: Additional evaluation requested from abnormal screening. Last screening mammogram was performed less than 1 month ago. Patient History: Menarche at age 13. First Full-Term at age 29. Late child-bearing (after 30). Perimenopausal. Mother had breast cancer, left, age 67. Risk Values: Marilia 5 year model risk: 1.7%. NCI Lifetime model risk: 16.1%. Prior Study Comparison: 12/30/2019 Bilateral Screening Mammogram, [facility]. 06/26/2022 Bilateral MG 3D screening mammo w/cad, [facility]. 08/10/2023 Bilateral MG 3D screening mammo w/cad, [facility]. Tissue Density: Left: There are scattered areas of fibroglandular density. Findings: Analyzed By CAD. Asymmetric density seen only on the left MLO spot compression view 6 cm from the nipple measuring 1.2 cm in length. This is below the level of the nipple and ultrasound is recommended. Overall Assessment: Incomplete: need additional imaging evaluation, BI-RAD 0 Management: Diagnostic Breast Ultrasound of the left breast. . Results were given to the patient verbally at the time of exam. Patient should continue monthly self-breast exams. A clinical breast exam by your physician is recommended on an annual basis. This exam should not preclude additional follow-up of suspicious palpable abnormalities. Note on Marilia scores and lifetime risk: 1. A Marilia score greater than 3% is considered moderate risk. If this is the case, consider specialist referral to assess eligibility for a risk reducing agent. 2. If overall lifetime risk for the development of breast cancer is 20% or higher, the patient may qualify for future screening with alternating mammogram and breast MRI. Electronically signed and approved by: Tato Russell M.D. Radiologis
--- NOTE | 2023-08-16 09:33 | USB ---
Reason for Exam: Additional evaluation requested from abnormal screening. Patient History: Menarche at age 13. First Full-Term at age 29. Late child-bearing (after 30). Perimenopausal. Mother had breast cancer, left, age 67. Risk Values: Marilia 5 year model risk: 1.7%. NCI Lifetime model risk: 16.1%. Technique: Method: Targeted. Prior Study Comparison: 12/30/2019 Bilateral Screening Mammogram, [facility]. 06/26/2022 Bilateral MG 3D screening mammo w/cad, [facility]. 08/10/2023 Bilateral MG 3D screening mammo w/cad, [facility]. Findings: The lower section of the breast of the left breast, the axilla of the left breast and the retroareolar of the left breast were scanned. No solid or cystic masses are identified. Manage clinically. Overall Assessment: Negative, BI-RAD 1 Management: Diagnostic Mammogram of the left breast in 6 months. A clinical breast exam by your physician is recommended on an annual basis and results should be correlated with mammographic findings. This exam should not preclude additional follow-up of suspicious palpable abnormalities. Results were given to the patient verbally at the time of exam. Electronically signed and approved by: Tato Russell M.D. Radiologis
== END | disposition home or self-care (01) ==
LOC: RADMAMWWP 08:24
PROVIDERS: ATTEND Family Medicine
DX: R92.322 Mammographic fibroglandular density, left breast (principal); R92.8 Other abnormal and inconclusive findings on diagnostic imaging of breast; Z80.3 Family history of malignant neoplasm of breast
CPT/HCPCS: 77061; 77065

== ENCOUNTER 2023-12-05 12:28 | Day surgery (SDC) | payer BC ==
[2023-11-30 14:01] VITALS: BMI 27.3
[~2023-12-05 12:28] MED LIST changes: -ACETAMINOPHEN TAB 500 MG TAB PO ONE; -DEXAMETHASONE SOD PHOSPHATE 10 MG/ML 1 ML VIAL IV ONE; -GABAPENTIN 300 MG CAP PO ONE; -HYDROmorphone 0.5 MG/0.5 ML SYRINGE IVP PRN; +LIDOCAINE 1% (10MG/ML) FOR IV START INTRADERMA PRN; -MELOXICAM 7.5 MG TAB PO ONE; -MIDAZOLAM 2 MG/2 ML VIAL IV PRN; -ONDANSETRON 4 MG/2 ML VIAL IVP ONE; -SCOPOLAMINE 1.5MG/72HR PATCH TRANSDERM ONE; -TRANEXAMIC ACID 1,000 MG in SODIUM CHLORIDE 0.9% 100 ML IVPB ONE; -VANCOMYCIN 1,000 MG in SODIUM CHLORIDE 0.9% 250 ML IVPB ONE
[2023-12-05 13:14] VITALS: TEMP 98
[2023-12-05] MEDS: IV FLUID CONTINUATION 1,000 ML IV ONE (13:25)
[2023-12-05] MEDS: LACTATED RINGERS 1,000 ML IV SCH (13:25)
[2023-12-05] MEDS ORDERED: LIDOCAINE 1% INJ 10MG/ML (20 ML MDV) ONE (13:26)
[2023-12-05] MEDS ORDERED: PROPOFOL 10 MG/ML 20 ML VIAL IV ONE (13:26)
--- NOTE | 2023-12-05 13:49 | P.PCN ---
Date of Procedure: 12/05/23 Procedure(s) Performed: BRIEF HISTORY: Patient is a 47-year-old pleasant white female scheduled for an elective colonoscopy as a part of evaluation of prior history of colon polyps. PROCEDURE PERFORMED: Colonoscopy with snare polypectomy. PREOPERATIVE DIAGNOSIS: History of colon polyp. IV sedation per Anesthesia. PROCEDURE: After informed consent was obtained, the patient, was brought into the endoscopy unit. IV sedation was administered by Anesthesia under continuous monitoring. Digital rectal examination was normal. Initially the Olympus CF-160 flexible video colonoscope was then inserted in the rectum, gradually advanced into the cecum without any difficulty. Careful examination was performed as the scope was gradually being withdrawn. Ileocecal valve and the appendiceal orifice were visualized and appeared normal. Prep was excellent. Mucosa of the cecum, ascending colon, transverse colon, descending colon, appeared normal. The sigmoid colon there was a 1 cm polyp removed by snare polypectomy. Rest of the sigmoid colon, and rectum appeared normal. Retroflexion was performed in the rectum and no lesions were seen. The patient tolerated the procedure well. IMPRESSION: 1 cm sigmoid colon polyp status post snare polypectomy Rest of the colon appeared normal RECOMMENDATIONS: Findings of this examination were discussed with the patient as well as the family. She was advised to follow-up with the biopsy results. If the biopsy reveals adenoma she can have repeat colonoscopy in 3 years..
[2023-12-05 14:41] VITALS: BP 109/77; PULSE 68; RESP 18
== END 2023-12-05 14:33 | disposition home or self-care (01) ==
LOC: ORWHC2ENDO 12:28
PROVIDERS: ATTEND Internal Medicine Gastroenterology
CPT/HCPCS: 45385; 81025; 88305

== ENCOUNTER → 2024-02-15 | Outpatient (CLI) | payer OTHER ==
--- NOTE | 2024-02-15 15:11 | MR ---
EXAMINATION TYPE: MR brain wo con DATE OF EXAM: 02/15/2024 1:28 PM COMPARISON: CT 02/25/2019 CLINICAL INDICATION: Female, 48 years old with history of S00.83XA CONTUSION OF OTHER PART OF HEAD, H ead injury, dizziness. TECHNIQUE: Multiplanar, multisequence images of the brain and brainstem were acquired without IV con trast. Diffusion weighted imaging is performed. FINDINGS: No evidence for acute infarction, hemorrhage, mass, mass effect, midline shift, herniation, effacemen t of basal cisterns, or extra-axial fluid collection. The ventricles and sulci are age-appropriate. Major intracranial flow voids are intact. 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 Midline structures demonstrate normal morphology. The craniocervical junction is normal. Trace mucosal thickening ethmoid air cells. Globes are intact. IMPRESSION: 1. Solitary 5 mm bright focus of white matter signal change inferiorly within the subcortical left fr ontal lobe. Nonspecific and possibly relating to trace, early burden of chronic small vessel ischemic disease. Gliosis as a sequela of previous injury is a possibility. Early demyelinating disease consi dered less likely and can be correlated clinically. 2. No acute intracranial abnormality seen. [facility], , 02/15/2024 3:09 PM
== END | disposition home or self-care (01) ==
LOC: RADMRIMAIN 12:46
PROVIDERS: ATTEND Emergency Medicine
DX: S00.83XA Contusion of other part of head, initial encounter (principal)
CPT/HCPCS: 70551

== ENCOUNTER → 2024-02-18 | Outpatient (CLI) | payer BC ==
--- NOTE | 2024-02-18 07:46 | MM ---
Reason for Exam: Follow-up at short interval from prior study. Last screening mammogram was performed 6 month(s) ago. Patient History: Menarche at age 13. First Full-Term at age 29. Late child-bearing (after 28). Perimenopausal. Mother had breast cancer, left, age 67. Risk Values: Marilia 5 year model risk: 1.8%. NCI Lifetime model risk: 15.9%. Prior Study Comparison: 06/26/2022 Bilateral MG 3D screening mammo w/cad, [facility]. 08/10/2023 Bilateral MG 3D screening mammo w/cad, [facility]. 08/16/2023 Left MG 3D work up w/cad , [facility]. Tissue Density: Left: The breasts are heterogeneously dense, which may obscure small masses. Findings: Analyzed By CAD. The pattern is stable. No suspicious interval change is evident. No suspicious groups of microcalcifications, spiculated or lobular masses, architectural distortion or other secondary signs of malignancy are mammographically apparent. Overall Assessment: Benign, BI-RAD 2 Management: Screening Mammogram of both breasts in 6 months. A negative mammogram report should not preclude additional follow up of suspicious palpable abnormalities. Patient should continue monthly self breast exam. A clinical breast exam by your physician is recommended on an annual basis and results should be correlated with mammographic findings. Note on Marilia scores and lifetime risk: 1. A Marilia score greater than 3% is considered moderate risk. If this is the case, consider specialist referral to assess eligibility for a risk reducing agent. 2. If overall lifetime risk for the development of breast cancer is 20% or higher, the patient may qualify for future screening with alternating mammogram and breast MRI. [facility], , 02/18/2024 7:44 AM. Electronically signed and approved by: Jasbir Ceballos D.O. Radiologis
== END | disposition home or self-care (01) ==
LOC: RADMAMWWP 06:51
PROVIDERS: ATTEND Family Medicine
DX: R92.8 Other abnormal and inconclusive findings on diagnostic imaging of breast (principal); Z80.3 Family history of malignant neoplasm of breast; R92.332 Mammographic heterogeneous density, left breast
CPT/HCPCS: 77061; 77065